=== PATIENT | male | born 1955 | race Two or more races ===

== ENCOUNTER 2022-06-01 23:59 | Inpatient (IN) | payer MEDICAID, OTHER ==
[~2022-06-01] VITALS: Ht 167.6 cm; Wt 77.1 kg
[2022-06-02] VITALS (8 sets, daily range): BP systolic 135–207; BP diastolic 63–92
[2022-06-02] MEDS ORDERED: ALBUTEROL (0.083%) 2.5MG/3ML NEB HHN STA (00:01)
[2022-06-02] MEDS ORDERED: MAGNESIUM 2 G PREMIX 50 ML IV STA (00:01)
[2022-06-02] MEDS ORDERED: IPRATROPIUM BROMIDE (0.02%) 0.5MG/2.5ML NEB HHN STA (00:01)
[2022-06-02] MEDS ORDERED: METHYLPREDNISOLONE SOD SUCC 125 MG/2 ML VIAL IV STA (00:01)
[2022-06-02] MEDS ORDERED: LABETALOL HCL VIAL 20 MG/4 ML VIAL IV ONE (00:15)
[2022-06-02 00:30] LABS: HEMATOCRIT. 35.1 % (42.0-52.0); HEMOGLOBIN. 11.7 g/dL (14.0-18.0); MEAN CORPUSCULAR HEMOGLOBIN 29.2 pg (28.0-32.0); MEAN CORPUSCULAR VOLUME 87.4 fL (80.0-94.0); MEAN PLATELET VOLUME 8.1 fl (7.4-10.4); PLATELET 344 x1000/uL (130-400); RED BLOOD CELL COUNT 4.02 mill/uL (4.7-6.1); RED CELL DISTRIBUTION WIDTH 14.7 % (11.6-14.6)
[2022-06-02] MEDS ORDERED: NITROGLYCERIN 50MG PREMIX 250 ML IV ONE (00:30)
[2022-06-02] MEDS ORDERED: FUROSEMIDE 100MG/10ML VIAL IVP ONE (00:30)
[2022-06-02 00:33] LABS: CHLORIDE 116 mEq/L (98-107)
[2022-06-02] MEDS ORDERED: NITROGLYCERIN 50MG PREMIX 250 ML IV NR (01:00)
[2022-06-02] MEDS ORDERED: LABETALOL HCL VIAL 20 MG/4 ML VIAL IV NR (01:00)
[2022-06-02 01:49] LABS: PLATELET ESTIMATE NORMAL
[2022-06-02] MEDS ORDERED: ASPIRIN 325MG EC TABLET PO NR (02:00)
[2022-06-02] MEDS ORDERED: HYDRALAZINE 20MG/ML VIAL IV PRN (08:15)
[2022-06-02] MEDS: AMLODIPINE 10MG TABLET PO SCH (08:45)
[2022-06-02] MEDS: HYDRALAZINE HCL 100MG TABLET PO SCH ×3 (08:54→17:54)
[2022-06-02] MEDS ORDERED: LOSARTAN POTASSIUM 25 MG TABLET PO SCH (09:00)
[2022-06-02 09:35] LABS: BG BASE EXCESS -2.6 mmol/L (-2.0-2.0); BG CARBOXYHEMOGLOBIN 0.5 % (0.5-1.5); BG DEOXYHEMOGLOBIN 6.1 % (0.0-5.0); BG FRACTION INSPIRED OXYGEN 35; BG HCO3 ACT 21.5 mmol/L (22.0-26.0); BG METHEMOGLOBIN 0.3 % (0.0-1.5); BG OXYGEN SATURATION 93.9 % (92.0-98.5); BG OXYHEMOGLOBIN 93.1 % (94.0-97.0); BG PCO2 34.8 mmHg (35.0-45.0); BG PH 7.408 (7.350-7.450); BG PO2 70.5 mmHg (75.0-100.0); BG SAMPLE SITE RIGHT RADIAL; BG TOTAL HEMOGLOBIN 11.8 g/dL (12.0-18.0); BG VENT MODE MASK - BIPAP
[2022-06-02] MEDS ORDERED: PNEUMOCOCCAL 23-VAL P-SAC VAC 0.5 ML IM ONE (10:15)
[2022-06-02] MEDS ORDERED: INFLUENZA VACCINE 05/PF 0.5 ML SYRINGE IM ONE (10:15)
[2022-06-02] MEDS: FUROSEMIDE 40MG/4ML VIAL IVP SCH ×2 (11:20→17:54)
[2022-06-02] MEDS: METHYLPREDNISOLONE SOD SUCC 40 MG/ML VIAL IV SCH ×2 (11:20→17:54)
[2022-06-02] MEDS ORDERED: LOSARTAN POTASSIUM 100 MG TABLET PO SCH (12:30)
[2022-06-02] MEDS: IPRATROPIUM/ALBUTEROL 0.5-3(2.5)MG/3ML NEB HHN SCH ×2 (13:20→21:40)
[2022-06-02] MEDS ORDERED: CLONIDINE 0.1MG TABLET PO SCH (13:30)
[2022-06-02] MEDS ORDERED: DEXTROSE 50% WATER 50ML SYRINGE IV PRN (13:45)
[2022-06-02] MEDS: CLONIDINE 0.2MG TABLET PO SCH ×2 (15:26→22:49)
[2022-06-02 16:53] LABS: CLARITY URINE CLEAR (CLEAR); COLOR URINE YELLOW (YELLOW); KETONES URINE NEGATIVE (NEGATIVE); LEUKOCYTE ESTERASE URINE NEGATIVE (NEGATIVE); NITRITE URINE NEGATIVE (NEGATIVE); OCCULT BLOOD URINE NEGATIVE (NEGATIVE); PH URINE 5.5 (4.5-8.0); PROTEIN URINE 1+ (NEGATIVE); UROBILINOGEN URINE 0.2 E.U./dL (0.2-1.0)
[2022-06-02 17:15] LABS: *AMPHETAMINES SCREEN URINE NEGATIVE (NEGATIVE); *BARBITURATES SCREEN URINE NEGATIVE (NEGATIVE); *BENZODIAZEPINES SCREEN URINE NEGATIVE (NEGATIVE); *COCAINE SCREEN URINE PRESUMTIVE POSITIVE (NEGATIVE); CANNABINOID URINE SCREEN NEGATIVE (NEGATIVE); METHADONE URINE SCREEN NEGATIVE (NEGATIVE); OPIATES URINE SCREEN NEGATIVE (NEGATIVE); PHENCYCLIDINE URINE SCREEN NEGATIVE (NEGATIVE)
[2022-06-02] MEDS: BLOOD SUGAR DIAGNOSTIC STRIP TEST SCH ×2 (17:19→21:00)
[2022-06-02] MEDS: INSULIN LISPRO 100 UNITS/ML SUBCUT SCH ×2 (17:50→22:45)
[2022-06-02] MEDS ORDERED: FAMOTIDINE 20MG TABLET PO SCH (21:00)
[2022-06-02] MEDS ORDERED: ENOXAPARIN 40MG/0.4ML SYR SUBCUT SCH (21:00)
[2022-06-03] VITALS (11 sets, daily range): BP systolic 114–157; BP diastolic 46–75
[2022-06-03] MEDS: IPRATROPIUM/ALBUTEROL 0.5-3(2.5)MG/3ML NEB HHN SCH ×5 (01:00→16:30)
[2022-06-03] MEDS: METHYLPREDNISOLONE SOD SUCC 40 MG/ML VIAL IV SCH ×2 (03:02→09:02)
[2022-06-03] MEDS: BLOOD SUGAR DIAGNOSTIC STRIP TEST SCH ×3 (07:30→18:09)
[2022-06-03] MEDS: CLONIDINE 0.2MG TABLET PO SCH (09:02)
[2022-06-03] MEDS: AMLODIPINE 10MG TABLET PO SCH (09:02)
[2022-06-03] MEDS: FUROSEMIDE 40MG/4ML VIAL IVP SCH ×2 (09:02→17:00)
[2022-06-03] MEDS: HYDRALAZINE HCL 100MG TABLET PO SCH ×3 (09:04→17:00)
[2022-06-03] MEDS: INSULIN LISPRO 100 UNITS/ML SUBCUT SCH ×3 (09:07→18:00)
[2022-06-03] MEDS ORDERED: ALBU18HF2 IH (12:11)
[2022-06-03] MEDS ORDERED: CLON0.2T PO (12:11)
[2022-06-03] MEDS ORDERED: FURO-151 MT (12:11)
[2022-06-03] MEDS ORDERED: P20 PO (12:11)
[2022-06-03] MEDS ORDERED: HYDR100T26 PO (12:11)
[2022-06-03] MEDS ORDERED: FLUT1DIS3 INH (12:11)
[2022-06-04] MEDS ORDERED: PREDNISONE 20MG TABLET PO SCH (09:00)
== END 2022-06-04 00:24 | disposition home or self-care (01) | DRG 190 ==
LOC: ER 06-02 00:01 → MICUSO 06-02 01:33 → EDBEDREQTM 06-02 01:40 → EDBEDREQ 06-02 01:40 → 5EST 06-02 11:00
PROVIDERS: ADMIT Internal Medicine; ATTEND Internal Medicine
PROC: 5A09357 Assistance with Respiratory Ventilation, Less than 24 Consecutive Hours, Continuous Positive Airway Pressure (ICD-10-PCS; principal; 2022-06-02)
DX: I21.4 Non-ST elevation (NSTEMI) myocardial infarction (principal); J96.01 Acute respiratory failure with hypoxia; I50.33 Acute on chronic diastolic (congestive) heart failure; E44.0 Moderate protein-calorie malnutrition; N17.9 Acute kidney failure, unspecified; I13.0 Hypertensive heart and chronic kidney disease with heart failure and stage 1 through stage 4 chronic kidney disease, or unspecified chronic kidney disease; J44.1 Chronic obstructive pulmonary disease with (acute) exacerbation; D63.1 Anemia in chronic kidney disease; E11.22 Type 2 diabetes mellitus with diabetic chronic kidney disease; Z20.822 Contact with and (suspected) exposure to COVID-19; N18.9 Chronic kidney disease, unspecified; I16.1 Hypertensive emergency; E78.5 Hyperlipidemia, unspecified; F14.90 Cocaine use, unspecified, uncomplicated; F17.210 Nicotine dependence, cigarettes, uncomplicated; Z88.8 Allergy status to other drugs, medicaments and biological substances; Z68.27 Body mass index [BMI] 27.0-27.9, adult
CPT/HCPCS: 36415; 36600; 71045; 80048; 80053; 80305; 81003; 82375; 82805; 82962; 83036; 83880; 84484; 85025; 87077; 87186; 87426; 87804; 90686; 90732; 93005; 93306; 94640; 94644; 94660; 99285; C9803; J0360; J1650; J1815; J1940; J2920; J2930; J3475; J3490

== ENCOUNTER 2022-06-14 19:57 | Inpatient (IN) | payer OTHER, MEDICAID ==
[~2022-06-14] VITALS: Ht 170.2 cm; Wt 83.6 kg
[~2022-06-14 19:57] MED LIST: ALBU18HF2 IH; CLON0.2T PO; FLUT1DIS3 INH; FURO-151 MT; HYDR100T26 PO; P20 PO
[2022-06-14] MEDS ORDERED: METHYLPREDNISOLONE SOD SUCC 125 MG/2 ML VIAL IV STA (20:11)
[2022-06-14] MEDS ORDERED: ALBUTEROL (0.083%) 2.5MG/3ML NEB HHN STA (20:11)
[2022-06-14] MEDS ORDERED: IPRATROPIUM BROMIDE (0.02%) 0.5MG/2.5ML NEB HHN STA (20:11)
[2022-06-14 21:00] LABS: HEMATOCRIT. 33.9 % (42.0-52.0); MEAN CORPUSCULAR HEMOGLOBIN 28.3 pg (28.0-32.0); MEAN CORPUSCULAR VOLUME 87.3 fL (80.0-94.0); MEAN PLATELET VOLUME 8.8 fl (7.4-10.4); PLATELET 231 x1000/uL (130-400); RED BLOOD CELL COUNT 3.89 mill/uL (4.7-6.1); RED CELL DISTRIBUTION WIDTH 14.5 % (11.6-14.6)
[2022-06-14 21:01] LABS: CHLORIDE 111 mEq/L (98-107)
[2022-06-14] MEDS ORDERED: ACETAMINOPHEN 325MG TABLET PO ONE (21:45)
[2022-06-14] MEDS ORDERED: LEVOFLOXACIN 750MG PREMIX 150 ML IV STA (22:08)
[2022-06-14 22:22] LABS: PLATELET ESTIMATE NORMAL
[2022-06-14] MEDS ORDERED: ASPIRIN 325MG TABLET PO ONE (22:45)
[2022-06-15] VITALS (8 sets, daily range): BP systolic 159–201; BP diastolic 73–109
[2022-06-15 09:50] LABS: BG BASE EXCESS -2.4 mmol/L (-2.0-2.0); BG CARBOXYHEMOGLOBIN 0.1 % (0.5-1.5); BG DEOXYHEMOGLOBIN 1.3 % (0.0-5.0); BG FRACTION INSPIRED OXYGEN 30; BG HCO3 ACT 21.9 mmol/L (22.0-26.0); BG METHEMOGLOBIN 0.3 % (0.0-1.5); BG OXYGEN SATURATION 98.7 % (92.0-98.5); BG OXYHEMOGLOBIN 98.3 % (94.0-97.0); BG PCO2 35.7 mmHg (35.0-45.0); BG PH 7.405 (7.350-7.450); BG PO2 148.4 mmHg (75.0-100.0); BG SAMPLE SITE RIGHT RADIAL; BG VENT MODE NASAL CANNULA
[2022-06-15] MEDS ORDERED: ONDANSETRON HCL 4MG/2ML INJ IV PRN (10:45)
[2022-06-15] MEDS ORDERED: DOCUSATE SODIUM 100MG CAPSULE PO PRN (10:45)
[2022-06-15] MEDS ORDERED: IPRATROPIUM/ALBUTEROL 0.5-3(2.5)MG/3ML NEB HHN SCH (10:45)
[2022-06-15] MEDS: HYDRALAZINE 20MG/ML VIAL IV PRN ×2 (11:05→17:33)
[2022-06-15] MEDS: METHYLPREDNISOLONE SOD SUCC 40 MG/ML VIAL IV SCH ×2 (11:58→18:25)
[2022-06-15] MEDS: FAMOTIDINE 20MG TABLET PO SCH (12:00)
[2022-06-15] MEDS: ENOXAPARIN 40MG/0.4ML SYR SUBCUT SCH (12:05)
[2022-06-15] MEDS ORDERED: DEXTROSE 50% WATER 50ML SYRINGE IV PRN ×2 (14:00→18:00)
[2022-06-15] MEDS ORDERED: IPRATROPIUM BROMIDE (0.02%) 0.5MG/2.5ML NEB HHN PRN (14:15)
[2022-06-15] MEDS ORDERED: ALBUTEROL (0.083%) 2.5MG/3ML NEB HHN PRN (14:15)
[2022-06-15] MEDS ORDERED: BLOOD SUGAR DIAGNOSTIC STRIP TEST SCH (16:50)
[2022-06-15 16:59] LABS: D-DIMER 1.51 mg/L FEU (<0.50); INR 1.1; PROTHROMBIN TIME 11.9 sec (9.6-11.0)
[2022-06-15 17:03] LABS: CLARITY URINE CLOUDY (CLEAR); COLOR URINE YELLOW (YELLOW); KETONES URINE NEGATIVE (NEGATIVE); LEUKOCYTE ESTERASE URINE 1+ (NEGATIVE); NITRITE URINE POSITIVE (NEGATIVE); OCCULT BLOOD URINE NEGATIVE (NEGATIVE); PH URINE 5.5 (4.5-8.0); PROTEIN URINE 2+ (NEGATIVE); SPECIFIC GRAVITY URINE 1.018 (1.005-1.030); UROBILINOGEN URINE 0.2 E.U./dL (0.2-1.0)
[2022-06-15 17:13] LABS: *AMPHETAMINES SCREEN URINE NEGATIVE (NEGATIVE); *BARBITURATES SCREEN URINE NEGATIVE (NEGATIVE); *BENZODIAZEPINES SCREEN URINE NEGATIVE (NEGATIVE); *COCAINE SCREEN URINE PRESUMTIVE POSITIVE (NEGATIVE); CANNABINOID URINE SCREEN NEGATIVE (NEGATIVE); METHADONE URINE SCREEN NEGATIVE (NEGATIVE); OPIATES URINE SCREEN NEGATIVE (NEGATIVE); PHENCYCLIDINE URINE SCREEN NEGATIVE (NEGATIVE)
[2022-06-15] MEDS ORDERED: INSULIN LISPRO 100 UNITS/ML SUBCUT SCH (17:20)
[2022-06-15] MEDS ORDERED: CLONIDINE 0.1MG TABLET PO PRN (17:45)
[2022-06-15] MEDS: FUROSEMIDE 40MG/4ML VIAL IVP SCH (18:25)
[2022-06-15] MEDS: ALBUTEROL (0.083%) 2.5MG/3ML NEB HHN SCH (20:41)
[2022-06-15] MEDS: IPRATROPIUM BROMIDE (0.02%) 0.5MG/2.5ML NEB HHN SCH (20:41)
[2022-06-15] MEDS ORDERED: ATORVASTATIN CALCIUM 40MG TABLET PO SCH (21:00)
[2022-06-15] MEDS: HYDRALAZINE HCL 25MG TABLET PO SCH (21:55)
[2022-06-15] MEDS: BLOOD SUGAR DIAGNOSTIC STRIP TEST SCH (22:58)
[2022-06-15] MEDS: INSULIN LISPRO 100 UNITS/ML SUBCUT SCH (23:03)
[2022-06-16] VITALS (7 sets, daily range): BP systolic 111–168; BP diastolic 50–91
[2022-06-16] MEDS: IPRATROPIUM BROMIDE (0.02%) 0.5MG/2.5ML NEB HHN SCH ×5 (00:57→15:38)
[2022-06-16] MEDS: ALBUTEROL (0.083%) 2.5MG/3ML NEB HHN SCH ×5 (00:58→15:38)
[2022-06-16] MEDS: METHYLPREDNISOLONE SOD SUCC 40 MG/ML VIAL IV SCH ×2 (03:44→13:10)
[2022-06-16] MEDS: BLOOD SUGAR DIAGNOSTIC STRIP TEST SCH ×3 (06:19→15:50)
[2022-06-16] MEDS: HYDRALAZINE HCL 25MG TABLET PO SCH (06:19)
[2022-06-16 07:12] LABS: CHLORIDE 107 mEq/L (98-107)
[2022-06-16 07:41] LABS: HEMATOCRIT. 30.3 % (42.0-52.0); HEMOGLOBIN. 10.3 g/dL (14.0-18.0); MEAN CORPUSCULAR HEMOGLOBIN 29.5 pg (28.0-32.0); MEAN CORPUSCULAR VOLUME 87.2 fL (80.0-94.0); MEAN PLATELET VOLUME 9.3 fl (7.4-10.4); PLATELET 199 x1000/uL (130-400); RED BLOOD CELL COUNT 3.48 mill/uL (4.7-6.1); RED CELL DISTRIBUTION WIDTH 14.7 % (11.6-14.6)
[2022-06-16] MEDS ORDERED: LEVO250T74 MT (08:46)
[2022-06-16] MEDS ORDERED: P20 PO (08:46)
[2022-06-16] MEDS ORDERED: HYDR100T26 PO (08:46)
[2022-06-16] MEDS ORDERED: ALBU18HF2 IH (08:46)
[2022-06-16] MEDS ORDERED: FURO-151 MT (08:46)
[2022-06-16] MEDS ORDERED: FLUT1DIS3 INH (08:46)
[2022-06-16] MEDS ORDERED: CLON0.2T PO (08:46)
[2022-06-16] MEDS ORDERED: TAMSULOSIN HCL 0.4MG SR CAPSULE PO SCH (09:00)
[2022-06-16] MEDS: FAMOTIDINE 20MG TABLET PO SCH (09:00)
[2022-06-16] MEDS: ACETAMINOPHEN 325MG TABLET PO PRN ×2 (09:49→16:26)
[2022-06-16] MEDS: CLONIDINE 0.2MG TABLET PO SCH ×2 (09:49→16:26)
[2022-06-16] MEDS: FUROSEMIDE 40MG/4ML VIAL IVP SCH (09:49)
[2022-06-16] MEDS ORDERED: CEFTRIAXONE 1,000 MG in DEXTROSE 5% WATER 50 ML IV SCH (10:00)
[2022-06-16] MEDS: INSULIN LISPRO 100 UNITS/ML SUBCUT SCH ×3 (10:24→16:32)
[2022-06-16] MEDS: ENOXAPARIN 40MG/0.4ML SYR SUBCUT SCH (13:10)
[2022-06-16] MEDS ORDERED: HYDRALAZINE HCL 100MG TABLET PO SCH (14:00)
[2022-06-16 15:17] LABS: PLATELET ESTIMATE NORMAL
[2022-06-17] MEDS ORDERED: PREDNISONE 20MG TABLET PO SCH (09:00)
== END 2022-06-16 19:36 | disposition home or self-care (01) | DRG 871 ==
LOC: ER 19:57 → MICUSO 22:06 → EDBEDREQTM 22:08 → EDBEDREQ 22:08 → 3WST 06-15 13:07
PROVIDERS: ADMIT Emergency Medicine; ATTEND Internal Medicine
PROC: 5A09357 Assistance with Respiratory Ventilation, Less than 24 Consecutive Hours, Continuous Positive Airway Pressure (ICD-10-PCS; principal; 2022-06-14)
DX: A41.9 Sepsis, unspecified organism (principal); J96.02 Acute respiratory failure with hypercapnia; I13.0 Hypertensive heart and chronic kidney disease with heart failure and stage 1 through stage 4 chronic kidney disease, or unspecified chronic kidney disease; N39.0 Urinary tract infection, site not specified; I50.30 Unspecified diastolic (congestive) heart failure; J44.1 Chronic obstructive pulmonary disease with (acute) exacerbation; Z20.822 Contact with and (suspected) exposure to COVID-19; I25.10 Atherosclerotic heart disease of native coronary artery without angina pectoris; E11.22 Type 2 diabetes mellitus with diabetic chronic kidney disease; N18.9 Chronic kidney disease, unspecified; E78.5 Hyperlipidemia, unspecified; F14.10 Cocaine abuse, uncomplicated; F17.210 Nicotine dependence, cigarettes, uncomplicated; Z88.8 Allergy status to other drugs, medicaments and biological substances; Z79.899 Other long term (current) drug therapy; I25.2 Old myocardial infarction; Z79.84 Long term (current) use of oral hypoglycemic drugs; Z85.46 Personal history of malignant neoplasm of prostate; Z92.3 Personal history of irradiation
CPT/HCPCS: 36415; 36600; 71045; 80053; 80305; 81003; 82375; 82805; 82962; 83036; 83880; 84484; 85025; 85379; 87420; 87426; 87804; 93005; 93970; 94640; 94660; 99291; C9803; J0360; J0696; J1650; J1815; J1940; J1956; J2920; J2930; J7060

== ENCOUNTER 2024-09-02 11:19 | Emergency (ER) | payer MEDICAID, OTHER ==
[~2024-09-02] VITALS: Ht 162.6 cm; Wt 70.0 kg
[~2024-09-02 11:19] MED LIST changes: -ALBU18HF2 IH; +AMLO10TA80 PO; +CLON0.1T PO; -CLON0.2T PO; -FLUT1DIS3 INH; -FURO-151 MT; +FURO80TA87 MT; +HYDR100T11 PO; -HYDR100T26 PO; +INSU100I13 SQ; +METR-167 PO; -P20 PO
[2024-09-02 11:20] VITALS: TEMP 36.6; O2SAT 98
[2024-09-02 11:45] VITALS: BP 140/82; PULSE 92; RESP 18
[2024-09-02] MEDS: TRAMADOL 50MG TABLET PO ONE (11:45)
[2024-09-02] MEDS ORDERED: NAPR-677 MT (14:49)
[2024-09-02] MEDS ORDERED: TRAM50TA3 MT (14:49)
== END 2024-09-02 14:14 ==
LOC: ER 11:19
DX: M16.12 Unilateral primary osteoarthritis, left hip (principal); I11.0 Hypertensive heart disease with heart failure; I50.9 Heart failure, unspecified; J44.89 Other specified chronic obstructive pulmonary disease; E11.9 Type 2 diabetes mellitus without complications; Z88.8 Allergy status to other drugs, medicaments and biological substances; Z79.4 Long term (current) use of insulin; Z79.899 Other long term (current) drug therapy
CPT/HCPCS: 73502; 99283; Z7610 ×2